=== PATIENT | female | born 1970 | race Caucasian/White ===

== ENCOUNTER → 2016-08-25 | Outpatient (REF) | payer OTHER ==
[2016-08-25 14:06] LABS: CREATININE FOR GFR 1.26 MG/DL (0.55-1.02); GLOMERULAR FILTRATION RATE 48.7 (>58)
== END | disposition home or self-care (01) ==
LOC: M LABNEURO 12:59
PROVIDERS: ATTEND Psychiatry & Neurology Neurology
DX: Z01.812 Encounter for preprocedural laboratory examination (principal)

== ENCOUNTER → 2016-10-26 | Outpatient (REF) | payer OTHER ==
[2016-10-27 14:23] LABS: PERCENT SATURATION 4.9 % (13.2-37.4)
== END ==
LOC: M LAB REF 14:01
PROVIDERS: ATTEND Internal Medicine Nephrology
DX: D64.9 Anemia, unspecified (principal)

== ENCOUNTER → 2016-10-29 | Outpatient (CLI) | payer OTHER ==
--- NOTE | 2016-10-29 15:42 | REP ---
RENAL AND BLADDER ULTRASOUND: Real-time sonographic evaluation of the left kidney performed in this patient who has had a prior right nephrectomy. The left kidney measures 12.6 x 5.8 x 5.9 cm. There is no hydronephrosis. There is a cyst in the upper pole of the left kidney, 1.3 x 1.2 x 1.1 cm with possibly some low level echoes. There is no other evidence of mass, hydronephrosis or nephrolithiasis. The urinary bladder is minimally distended and not optimally evaluated. Visualized right renal fossa appears unremarkable. IMPRESSION: Left renal cyst. Status post right nephrectomy. Signed by Geraldo Jernigan MD 10/29/2016 04:55 P
== END ==
LOC: M RAD 13:47
PROVIDERS: ATTEND Internal Medicine Nephrology
DX: N18.3 Chronic kidney disease, stage 3 (moderate) (principal); N28.1 Cyst of kidney, acquired; Z85.528 Personal history of other malignant neoplasm of kidney; Z90.5 Acquired absence of kidney

== ENCOUNTER → 2017-07-26 | Outpatient (CLI) | payer OTHER | LOC: M RAD 14:40 | DX: N18.2 Chronic kidney disease, stage 2 (mild) (principal) ==

== ENCOUNTER → 2018-01-02 | Outpatient (REF) | payer OTHER | LOC: M LAB REF 17:12 | DX: N39.0 Urinary tract infection, site not specified (principal) ==

== ENCOUNTER → 2019-01-02 | Outpatient (REF) ==
--- NOTE | 2019-01-02 17:53 | REP ---
Lumbar spine series: Three views. History: Degenerative disc disease. Comparison is made with CT imaging available from an outside institution in the lower lumbar spine from March 30, 2012. Findings: There are clips in right upper quadrant right mid and right lower abdomen. Lumbar vertebral body heights are preserved. There is no evidence of spondylolysis but there is a grade 1 spondylolisthesis at L5-S1 measuring 7 mm. This is due to degenerative disc and advanced osteoarthritic facet disease. This appears to have progressed since the CT study from 2011 when the spondylolisthesis only measured 3 mm. A there is minimal narrowing of the L4-5 disc. Other disc spaces are preserved. Discogenic spurring is noted in the lower thoracic spine mild in degree. There is facet osteoarthritic hypertrophy and sclerosis at L5-S1 bilaterally. Mild spurring is seen at the SI joints with no evidence of erosive change or ankylosis. Impression: Degenerative grade 1 L5 S1 spondylolisthesis, 7 mm today, previously 3 mm in 2012. Degenerative disc and osteoarthritic facet disease is noted at L5-S1 bilaterally. Electronically Signed by Yared Jolley MD 01/03/2019 07:54 A
== END ==
LOC: M SMT 14:31
PROVIDERS: ATTEND Internal Medicine
DX: Z02.71 Encounter for disability determination (principal)

== ENCOUNTER → 2019-05-18 | Outpatient (CLI) | payer OTHER ==
--- NOTE | 2019-06-05 05:59 | ECWPNPC ---
PATIENT NAME: TIM CURIEL : 1970 GENDER: FEMALE VISIT DATE: 05/18/2019 DISCHARGE DATE: 05/18/19 1056 VISIT LOCKED DATE TIME: PHYSICIAN: DINA THOMAS MD RESOURCE: DINA THOMAS MD REASON FOR APPOINTMENT 1. CERVICAL SPONDYLOSIS HISTORY OF PRESENT ILLNESS PAIN SCREENING: PATIENT HAS A COMPLAINT OF ACUTE OR CHRONIC PAIN :YES 48 YEAR OLD FEMALE PATIENT WITH A HISTORY OF CHRONIC NECK AND LEFT ARM PAIN. THE PATIENT DESCRIBES THE PAIN SHARP, STABBING, SHOOTING, INTERMITTENT, AND NIGHTLY WITH A PAIN SCORE OF 0-5/10 DEPENDING ON PHYSICAL ACTIVITY. THE PATIENT STATES HER PAIN BEGINS IN HER NECK WITH PAIN AND NUMBNESS DOWN HER LEFT SHOULDER INTO HER LEFT ARM AND FINGERS. THE PATIENT SAYS HER NECK AND ARM PAIN SPONTANEOUSLY STARTED IN FEBRUARY OF THIS YEAR AND HAS SINCE PERSISTED, BUT CURRENTLY IT IS NOT BAD IT WAS IN THE BEGINNING AND HAS BEEN IMPROVING OVER THE LAST MONTH. THE PATIENT SAYS SHE HAS NOT TRIED PHYSICAL THERAPY YET. THE PATIENT MENTIONS IN 2005, SHE HAD A CRANIOTOMY TO REMOVE FIVE MENINGOMAS. PATIENT DENIES UNEXPLAINABLE WEIGHT LOSS, FEVER, CHILLS, NEW CHANGES ON HER URINARY OR BOWEL CONTROL. FALL RISK SCREENING: SCREENING :NO FALLS REPORTED IN THE LAST YEAR CURRENT MEDICATIONS TAKING LISINOPRIL 10 MG TABLET 1 TABLET ORALLY ONCE A DAY TAKING NEURONTIN 400 MG CAPSULE 1 CAPSULE ORALLY BID TAKING METOPROLOL SUCCINATE ER 50 MG TABLET EXTENDED RELEASE 24 HOUR 1 TABLET ORALLY ONCE A DAY TAKING HYDROCHLOROTHIAZIDE 12.5 MG CAPSULE 1 CAPSULE IN THE MORNING ORALLY ONCE A DAY TAKING PEPCID 40 MG TABLET 1 TABLET AT BEDTIME ORALLY ONCE A DAY TAKING TYLENOL 8 HOUR 650 MG TABLET EXTENDED RELEASE 2 TABLETS NEEDED ORALLY EVERY 8 HRS TAKING CENTRUM WOMEN - TABLET DIRECTED ORALLY NOT-TAKING NEXIUM 20 MG CAPSULE DELAYED RELEASE 1 CAPSULE ORALLY ONCE A DAY NOT-TAKING CLINDAMYCIN HCL 150 MG CAPSULE 3 CAPSULES ORALLY EVERY 8 HRS MEDICATION LIST REVIEWED AND RECONCILED WITH THE PATIENT PAST MEDICAL HISTORY HTN ACID REFLUX BRAIN TUMORS 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 SURGICAL HISTORY CRAINOTOMY 2006 NEPHRECTOMY 2013 FAMILY HISTORY FATHER: , DIAGNOSED WITH UNSPECIFIED HEART DISEASE, OTHER MALIGNANT NEOPLASM OF UNSPECIFIED SITE MOTHER: ALIVE SOCIAL HISTORY GENERAL: TOBACCO USE ARE YOU A:CURRENT EVERY DAY SMOKER HIV / HEP-C SCREENING HIV TEST OFFERED TO PATIENT:YES DATE OFFERED:05/03/2017 TEST ACCEPTED:NO HEP-C TEST OFFERED TO PATIENT:NO REASON:PATIENT DECLINED EDUCATION LEVEL OF EDUCATION:COLLEGE LANGUAGE LANGUAGES SPOKEN:[place]ER RECREATIONAL DRUG USE DRUG USE?NO LEARNING BARRIERS / SPECIAL NEEDS BARRIERS TO LEARNING?NO HEARING IMPAIRED?NO VISION IMPAIRED?NO COGNITIVELY IMPAIRED?NO READINESS TO LEARN?YES LEARNING PREFERENCES?NO LEARNING CAPABILITIES PRESENT?YES EMOTIONAL BARRIERS?NO SPECIAL DEVICES?NO FIELD ENUMERATOR NEEDED?NO PAIN CLINIC PFS, CLERGY, PUBLIC HEALTH REFERRALS HAS THE PATIENT BEEN EDUCATED REGARDING HIS/HER PLAN OF CARE?YES HAS THE PATIENT BEEN EDUCATED REGARDING PAIN, THE RISK FOR PAIN, THE IMPORTANCE OF EFFECTIVE PAIN MANAGEMENT, AND THE PAIN ASSESSMENT PROCESS?YES LATEX QUESTIONNAIRE LATEX ALLERGY : HAVE YOU EVER DEVELOPED ANY TYPE OF REACTION AFTER HANDLING LATEX PRODUCTS SUCH RUBBER GLOVES, CONDOMS, DIAPHRAGMS, BALLOONS, SOCKS, OR UNDERWEAR?NO LATEX ALLERGY : HAVE YOU EVER DEVELOPED ANY TYPE OF REACTION DURING OR AFTER DENTAL APPOINTMENT, VAGINAL/RECTAL EXAMINATION, SURGICAL PROCEDURE, OR ANY OTHER EXPOSURE?NO LATEX RISK : HAVE YOU EVER HAD ANY DIFFICULTY BREATHING OR HIVES AFTER EATING OR HANDLING ANY FRUITS, OR VEGETABLES; SUCH KIWI, BANANAS, STONE FRUITS, OR CHESTNUTSNO LATEX RISK : DO YOU HAVE A PREVIOUS PERSONAL HISTORY OF MORE THAN NINE SURGERIES, SPINA BIFIDA, OR REPEATED CATHERIZATIONS? NO LATEX RISK : ARE YOU FREQUENTLY EXPOSED TO LATEX PRODUCTS IN YOUR OCCUPATION?NO DATE ASKED : 05/18/2019 CAFFEINE CAFFEINE USE?YES COFFEE 5 CUPS DAILY ADVANCE DIRECTIVE ADVANCE DIRECTIVE DISCUSSED WITH PATIENT:YES PT DOES NOT HAVE HCP AND DECLINES INFORMATION AT THIS TIME. BUDDHISM [id number] JAINISM MARITAL STATUS: . ALCOHOL SCREENING DID YOU HAVE A DRINK CONTAINING ALCOHOL IN THE PAST YEAR?NO POINTS0 INTERPRETATIONNEGATIVE REVIEWED WITH PATIENT 05/18/19 0930 BV. HOSPITALIZATION/MAJOR DIAGNOSTIC PROCEDURE ABOVE REVIEW OF SYSTEMS REVIEWED BY: PROVIDER: DINA THOMAS MD . CONSTITUTIONAL: ANY CHANGE IN YOUR MEDICAL CONDITION? NO . CHILLS NO . FEVER NO . INFECTION: DO YOU HAVE NEW INFECTIONS? NO . DO YOU HAVE HISTORY OF MRSA? NO . MUSCULOSKELETAL: ANY NEW PATTERNS OF PAIN OR NUMBNESS? NO . SYTEMIC LUPUS NO . GASTROENTEROLOGY: ANY NEW CHANGE IN BOWEL CONTROL? NO . BARRETTS ESOPHAGUS NO . CIRRHOSIS NO . HEPATITIS NO . LIVER FAILURE NO . ACID REFLUX YES, ON MEDICATION . UNEXPLAINED WEIGHT LOSS NO . GENITOURINARY: ANY NEW CHANGE IN BLADDER CONTROL? NO . IS THERE A CHANCE YOU COULD BE ? NO . HEMATOLOGY/LYMPH: DO YOU TAKE ANY BLOOD THINNERS? (FOR EXAMPLE- COUMADIN, PLAVIX, AGGRENOX, PLATEL, PRADAXA, OR XARELTO) NO . WHEN WAS YOUR LAST DOSE? DATE: TIME: . LOW PLATELET COUNT NO . SICKLE CELL DISEASE NO . VON WILLIEBRANDS NO . FACTOR V LEIDEN NO . THALLASEMIA NO . 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 STATES SHE SOMETIMES HAS TO TAKE IRON SUPPLEMENTS. NOT CURRENTLY TAKING ANY SUPPLEMENT . EASY BRUISING NO . NEUROLOGY: HAVE YOU FALLEN IN THE PAST 12 MONTHS? NO . ANY NEW EXTREMITY NUMBNESS OR WEAKNESS? PT STATES NUMBNESS AND TINGLING PAIN IN LEFT LEG HAS GOTTEN WORSE OVER THE PAST COUPLE MONTHS . HEAD INJURY NO . DEMENTIA NO . CEREBRAL PALSY NO . MULTIPLE SCLEROSIS NO . DIZZINESS NO . HEADACHE PT STATES SHE HAS DAILY CONSTANT HEADACHE. STATES THEY PROGRESS TO MIGRAINES WITH JAW PAIN ABOUT 4-5 TIMES A MONTH . STROKES NO . VERTIGO NO . CARDIOLOGY: DO YOU HAVE A PACEMAKER OR DEFIBRILLATOR? NO . ANGINA NO . HEART ATTACK NO . HEART SURGERY NO . CONGESTIVE HEART FAILURE/FLUID OVERLOAD NO . CHEST PAIN NO . HIGH BLOOD PRESSURE ON MEDICATION(S) . IRREGULAR HEART BEAT NO . RESPIRATORY: HAVE YOU BEEN SICK IN THE PAST WEEK? NO . FEVER NO . FLU LIKE SYMPTOMS? NO . CPAP NO . BYPAP NO . ASTHMA NO . EMPHYSEMA NO . CHRONIC LUNG DISEASES NO . SHORTNESS OF BREATH ON EXERTION NO . COUGH NO . SNORING YES . INTEGUMENTARY: DO YOU HAVE ANY RASHES OR OPEN SORES? NO . ALLERGIC/IMMUNO: ARE YOU ALLERGIC TO IV DYE? NO . ANY NEW ALLERGIES? NO . PSYCHIATRIC: DO YOU HAVE THOUGHTS OF HURTING YOURSELF OR SOMEONE ELSE? NO . ARE YOU ABUSED, NEGLECTED, OR IN AN UNSAFE ENVIRONMENT? NO . ENDOCRINOLOGY: ARE YOU DIABETIC? NO . THYROID DISORDER NO . OTHER: DO YOU NEED ANY PRESCRIPTIONS? NO . IF YES, PLEASE LIST: ____ . ANY NEW PROBLEMS WITH YOUR MEDICATIONS? NO . WHEN DID YOU LAST EAT? ____ . WHEN DID YOU LAST DRINK? ____ . WHAT DID YOU LAST DRINK? ____ . NAME OF PERSON DRIVING YOU HOME? ____ . DO YOU HAVE ANY OTHER QUESTIONS OR CONCERNS NO . VITAL SIGNS WT 170.4 LBS, HT 65 IN, BMI 28.35 INDEX, BP 118/69 MM HG, HR 85 /MIN, RR 18 /MIN, TEMP 98.2 F, OXYGEN SAT % 97%, NA INITIALS AW 0917, REVIEWED BY: BV. EXAMINATION GENERAL EXAMINATION: PATIENT IS ALERT O X 3 AND COOPERATIVE. LUNGS CLEAR, TO AUSCULTATION. HEART: NO MURMURS OR GALLOPS; FACIAL CRANIAL NERVES ARE GROSSLY NORMAL. GOOD SYMMETRY OF FACIAL MUSCLE MOVEMENT. NORMAL VISUAL HURT. LEFT ARM IS WEAKER AT EXTENSION AND FLEXION. LEFT HAND PACKAGING ASSOCIATE IS REDUCED COMPARED WITH THE RIGHT SIDE. MILD TENDERNESS OVER THE FOURTH AND FIFTH METATARSAL OF LEFT HAND. PAIN INCREASES OVER THE CERVICAL FACET JOINTS WITH EXTENSION AND LATERAL ROTATION OF THE LEFT SIDE OF NECK. MRI OF THE CERVICAL SPINE DONE ON 02/23/2019 SHOWS A LEFT DISC HERNIATION AT C6-C7 THAT IS COMPRESSING THE NERVE. MRI OF THE BRAIN DONE ON 02/23/2019 SHOWS MULTIPLE MENINGIOMAS THAT SUGGESTS MICROVASCULAR DISEASE. 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 TREATMENT INTERVERTEBRAL DISC DISORDERS WITH RADICULOPATHY, LUMBAR REGION CLINICAL NOTES: WE DISCUSSED SEVERAL ISSUES WITH MS. CURIEL'S PAIN MANAGEMENT CASE. I WILL REQUEST A CLEARANCE FROM THE PATIENT'S PRIMARY CARE PROVIDER AND NEUROLOGIST BEFORE PROCEEDING WITH ANY STEROID SPINAL INJECTIONS DUE TO THE PATIENT'S HISTORY OF MULTIPLE BRAIN AND SPINE MENINGIOMAS. CURRENTLY, THE PATIENT'S PAIN IS STABLE AND IT WAS AGREED NO INTERVENTIONS ARE NECESSARY AT THIS TIME, BUT I DISCUSSED WITH THE PATIENT THAT SHOULD HER PAIN INCREASE AGAIN, SHE WOULD BE A GOOD CANDIDATE FOR A LUMBAR EPIDURAL STEROID INJECTION. THE PATIENT WILL FOLLOW UP WITH THE NURSE PRACTITIONER IN SEVERAL WEEKS TO SEE IF A CLEARANCE WAS RECEIVED AND HOW HER PAIN IS DOING. INSTRUCTIONS WERE GIVEN, QUESTIONS WERE ANSWERED, PATIENT REPORTS UNDERSTANDING AND AGREES WITH THE PLAN. I, SALLIE ALAMO, DOCUMENTED THE ABOVE INFORMATION ACTING A SCRIBE FOR DR. THOMAS. I HAVE REVIEWED THE ABOVE DOCUMENT, WRITTEN BY SALLIE CLAUDIO AND I VERIFY THAT IT IS ACCURATE. DEAR VALERIY MTZ MD: THANK YOU FOR YOUR KIND REFERRAL OF TIM CURIEL. IF YOU WANT TO DISCUSS HER CASE WITH ME PLEASE CALL ME AT THE PAIN CENTER AT [phone]. SINCERELY, DINA THOMAS MD PAIN MEDICINE . PROCEDURE CODES FA211 ESTABILISHED PATIENT [facility] FACILITY CHARGE [id number] CURRENT MEDS W/DOSAGES DOCUMENTED G8730 PAIN ASSESS POS TOOL F/U PLAN DOC DISPOSITION & COMMUNICATION FOLLOW UP REASON: F/UP WITH MANAGER INCOME TAX, REQUESTING CLEARANCE FROM PRIMARY FOR SPINE INJECTION/POSSIBLE DAX IF PAIN RETURNS AND CLEARANCE RECEIVED ELECTRONICALLY SIGNED BY DINA THOMAS MD, MD ON 06/04/2019 AT 05:33 PM EST DISCLAIMER : THIS IS A VISIT SUMMARY EXTRACTED FROM THE [employer] CHART. IT IS NOT A COPY OF THE [employer] PROGRESS NOTE. REHANA
== END ==
LOC: M PAIN 09:00
PROVIDERS: ATTEND Anesthesiology
DX: M51.16 Intervertebral disc disorders with radiculopathy, lumbar region (principal); G89.29 Other chronic pain; D42.9 Neoplasm of uncertain behavior of meninges, unspecified; I10 Essential (primary) hypertension; K21.9 Gastro-esophageal reflux disease without esophagitis; F17.210 Nicotine dependence, cigarettes, uncomplicated; Z79.899 Other long term (current) drug therapy